=== PATIENT | male | born 1945 | race Two or more races ===

== ENCOUNTER 2020-05-10 08:22 | Inpatient (IN) | payer BC ==
[~2020-05-10] VITALS: Ht 188 cm; Wt 97.6 kg
[2020-05-10] MEDS ORDERED: InsuLIN REG 1unit/0.01ml Soln (100units/ml) IV ONE ×2 (09:00→11:00)
[2020-05-10] MEDS ORDERED: SODIUM CHLORIDE 0.9% 1,000 ML IV ONE (09:00)
[2020-05-10 09:11] LABS: Basophils # (auto) 0 10 ^3/uL (0-0.2); Basophils % (auto) 0.1 % (0.0-2.0); Eosinophils # (auto) 0.1 10 ^3/uL (0-0.8); Eosinophils % (auto) 0.5 % (0.0-7.0); Hematocrit 41.4 % (41.0-53.0); Hemoglobin 14.2 g/dL (13.5-17.5); Lymphocytes # (auto) 1.1 10 ^3/uL (0.4-5.4); Lymphocytes % (auto) 11.1 % (10.0-50.0); Mean Corpuscular Hemoglobin 31.2 pg (28.0-32.0); Mean Corpuscular Hgb Conc. 34.3 g/dL (32.0-36.0); Mean Corpuscular Volume 91.2 fL (80.0-100.0); Monocytes # (auto) 0.8 10 ^3/uL (0-1.3); Monocytes % (auto) 8.3 % (0.0-12.0); Neutrophils # (auto) 8.1 10 ^3/uL (1.6-8.6); Nucleated Red Blood Cells % 0.1 %; Platelet Count (auto) 147 10^3/uL (140-450); Red Blood Cells 4.54 10^6/uL (4.5-5.90); Red Cell Distribution Width 12.3 % (11.8-14.3); White Blood Cell 10.2 10^3/uL (4.4-10.8)
[2020-05-10 09:24] LABS: Albumin 3.8 g/dL (3.4-5.0); Anion Gap 16 (5-15); Blood Urea Nitrogen 60 mg/dL (7-18); Calcium 9.3 mg/dL (8.5-10.1); Carbon Dioxide 24 mmol/L (21-32); Chloride 86 mmol/L (98-107); Magnesium 2.5 mg/dL (1.6-2.6); Potassium 4.5 mmol/L (3.5-5.1); Sodium 126 mmol/L (136-145)
[2020-05-10 09:27] LABS: Alanine Aminotransferase 88 U/L (16-61); Aspartate Aminotransferase 23 U/L (15-37); Bilirubin, Total 0.7 mg/dL (0.2-1.0); GFR African American 32 mL/min; GFR Non-African American 27 mL/min; Total Protein 7.5 g/dL (6.4-8.2)
[2020-05-10 09:33] LABS: Alkaline Phosphatase 236 U/L (45-117)
[2020-05-10 09:40] LABS: BUN/Creatinine Ratio 23.7; Glucose 837 mg/dL (74-106)
[2020-05-10 10:29] LABS: Urine Bacteria NONE SEEN /hpf (None Seen); Urine Blood Negative /uL (Negative); Urine Specific Gravity 1.017 (1.001-1.035); Urine WBC <1 /hpf (0 - 3)
[2020-05-10] MEDS ORDERED: InsuLIN R (HUMAN) 100 UNITS in SODIUM CHL 0.9% 99 ML IV SCH ×2 (11:30→14:45)
[2020-05-10] MEDS ORDERED: INSULIN LANTUS (GLARGINE) 1 /0.01ml (100units/ml) SC ONE ×2 (11:30→14:45)
[2020-05-10] MEDS ORDERED: DEXTROSE (50%) 50ML SYRG IV PRN ×3 (11:30→19:45)
[2020-05-10] MEDS: ACCU-CHEK COMFORT CURVE STRIP VI SCH ×3 (12:00→22:45)
[2020-05-10 13:16] LABS: Albumin 3.2 g/dL (3.4-5.0); BUN/Creatinine Ratio 24.8; Calcium 8.3 mg/dL (8.5-10.1); Potassium 4.5 mmol/L (3.5-5.1); Total Protein 6.3 g/dL (6.4-8.2)
[2020-05-10 13:20] LABS: Bilirubin, Total 0.4 mg/dL (0.2-1.0)
[2020-05-10] MEDS: SODIUM CHLORIDE 0.9% 1,000 ML IV SCH ×2 (14:45→21:30)
[2020-05-10] MEDS ORDERED: DOCUSATE SOD 100 MG CAP PO PRN (14:45)
[2020-05-10] MEDS ORDERED: ONDANSETRON HCL 4 MG/2 ML VIAL IV PRN (14:45)
[2020-05-10] MEDS ORDERED: ACETAMINOPHEN 325 MG TAB PO PRN (14:45)
[2020-05-10] MEDS ORDERED: ACCU-CHEK COMFORT CURVE STRIP VI SCH (15:00)
[2020-05-10 20:25] VITALS: BP 127/73
[2020-05-10 21:00] VITALS: BP 127/73
[2020-05-10] MEDS: InsuLIN REG 1unit/0.01ml Soln (100units/ml) SC SCH (22:45)
[2020-05-11] MEDS ORDERED: PNEUMOCOCCAL VACC POLYS 25 MCG/0.5 ML VIAL IM ONE (02:45)
[2020-05-11 06:00] VITALS: BP 137/88
[2020-05-11 06:06] LABS: Basophils # (auto) 0 10 ^3/uL (0-0.2); Basophils % (auto) 0.2 % (0.0-2.0); Eosinophils # (auto) 0.1 10 ^3/uL (0-0.8); Hematocrit 37.6 % (41.0-53.0); Hemoglobin 12.8 g/dL (13.5-17.5); Lymphocytes # (auto) 0.7 10 ^3/uL (0.4-5.4); Lymphocytes % (auto) 12.2 % (10.0-50.0); Mean Corpuscular Hemoglobin 30.9 pg (28.0-32.0); Mean Corpuscular Hgb Conc. 34.2 g/dL (32.0-36.0); Mean Corpuscular Volume 90.4 fL (80.0-100.0); Monocytes # (auto) 0.5 10 ^3/uL (0-1.3); Monocytes % (auto) 8.6 % (0.0-12.0); Neutrophils # (auto) 4.6 10 ^3/uL (1.6-8.6); Nucleated Red Blood Cells % 0.1 %; Platelet Count (auto) 111 10^3/uL (140-450); Red Blood Cells 4.16 10^6/uL (4.5-5.90); Red Cell Distribution Width 12.4 % (11.8-14.3); White Blood Cell 5.9 10^3/uL (4.4-10.8)
[2020-05-11 06:29] LABS: Anion Gap 7 (5-15); Blood Urea Nitrogen 60 mg/dL (7-18); Calcium 8.5 mg/dL (8.5-10.1); Carbon Dioxide 26 mmol/L (21-32); Chloride 111 mmol/L (98-107); Cholesterol 142 mg/dL (< 200); Glucose 215 mg/dL (74-106); Potassium 3.9 mmol/L (3.5-5.1); Sodium 144 mmol/L (136-145)
[2020-05-11 06:32] LABS: GFR African American 31 mL/min; GFR Non-African American 26 mL/min; HDL Cholesterol 29 mg/dL (40-59); Triglycerides 606 mg/dL (< 150)
[2020-05-11] MEDS: ACCU-CHEK COMFORT CURVE STRIP VI SCH ×4 (06:47→21:48)
[2020-05-11] MEDS: InsuLIN REG 1unit/0.01ml Soln (100units/ml) SC SCH ×4 (06:47→22:27)
[2020-05-11] MEDS: SODIUM CHLORIDE 0.9% 1,000 ML IV SCH ×4 (06:55→20:45)
[2020-05-11 08:57] VITALS: BP 159/78
[2020-05-11] MEDS ORDERED: INSULIN LANTUS (GLARGINE) 1 /0.01ml (100units/ml) SC SCH (10:00)
[2020-05-11] MEDS: INSULIN LANTUS (GLARGINE) 1 /0.01ml (100units/ml) SC SCH (10:14)
[2020-05-11 13:00] VITALS: BP 141/74
[2020-05-11 16:31] VITALS: BP 150/75
[2020-05-11 21:00] VITALS: BP 141/72
[2020-05-12] MEDS: SODIUM CHLORIDE 0.9% 1,000 ML IV SCH ×5 (01:45→17:56)
[2020-05-12] MEDS: ACCU-CHEK COMFORT CURVE STRIP VI SCH ×4 (05:46→21:40)
[2020-05-12] MEDS: InsuLIN REG 1unit/0.01ml Soln (100units/ml) SC SCH ×4 (05:48→21:41)
[2020-05-12 06:00] VITALS: BP 164/81
[2020-05-12 07:53] LABS: Calcium 7.7 mg/dL (8.5-10.1); Magnesium 2.5 mg/dL (1.6-2.6); Potassium 3.7 mmol/L (3.5-5.1)
[2020-05-12 07:56] LABS: BUN/Creatinine Ratio 19.9
[2020-05-12 09:00] VITALS: BP 150/78
[2020-05-12 09:35] LABS: Basophils # (auto) 0 10 ^3/uL (0-0.2); Basophils % (auto) 0.3 % (0.0-2.0); Eosinophils # (auto) 0.2 10 ^3/uL (0-0.8); Eosinophils % (auto) 3.9 % (0.0-7.0); Hematocrit 37.5 % (41.0-53.0); Hemoglobin 12.7 g/dL (13.5-17.5); Lymphocytes # (auto) 1.1 10 ^3/uL (0.4-5.4); Lymphocytes % (auto) 19.5 % (10.0-50.0); Mean Corpuscular Hgb Conc. 33.7 g/dL (32.0-36.0); Monocytes # (auto) 0.6 10 ^3/uL (0-1.3); Monocytes % (auto) 10.2 % (0.0-12.0); Neutrophils # (auto) 3.7 10 ^3/uL (1.6-8.6); Neutrophils % (auto) 66.1 % (37.0-80.0); Nucleated Red Blood Cells % 0.1 %; Platelet Count (auto) 92 10^3/uL (140-450); Red Blood Cells 4.08 10^6/uL (4.5-5.90); Red Cell Distribution Width 12.6 % (11.8-14.3); White Blood Cell 5.5 10^3/uL (4.4-10.8)
[2020-05-12] MEDS: INSULIN LANTUS (GLARGINE) 1 /0.01ml (100units/ml) SC SCH (10:19)
[2020-05-12 13:00] VITALS: BP 158/99
[2020-05-12] MEDS ORDERED: LIDOCAINE 2% JELLY 11ml (GLYDO) UR ONE (14:00)
[2020-05-12] MEDS: TAMSULOSIN HYDROCHLORIDE 0.4 MG CAP PO SCH (18:16)
[2020-05-12 22:00] VITALS: BP 140/78
[2020-05-13] MEDS: SODIUM CHLORIDE 0.9% 1,000 ML IV SCH (02:45)
[2020-05-13 05:11] VITALS: BP 159/84
[2020-05-13] MEDS: ACCU-CHEK COMFORT CURVE STRIP VI SCH ×4 (06:34→22:10)
[2020-05-13] MEDS: InsuLIN REG 1unit/0.01ml Soln (100units/ml) SC SCH ×4 (06:35→22:21)
[2020-05-13 06:54] LABS: Basophils # (auto) 0 10 ^3/uL (0-0.2); Basophils % (auto) 0.1 % (0.0-2.0); Eosinophils # (auto) 0.2 10 ^3/uL (0-0.8); Eosinophils % (auto) 4.2 % (0.0-7.0); Hematocrit 39.1 % (41.0-53.0); Hemoglobin 13.5 g/dL (13.5-17.5); Lymphocytes # (auto) 0.9 10 ^3/uL (0.4-5.4); Mean Corpuscular Hemoglobin 31.3 pg (28.0-32.0); Mean Corpuscular Hgb Conc. 34.5 g/dL (32.0-36.0); Mean Corpuscular Volume 90.6 fL (80.0-100.0); Monocytes # (auto) 0.6 10 ^3/uL (0-1.3); Neutrophils # (auto) 3.4 10 ^3/uL (1.6-8.6); Neutrophils % (auto) 66.7 % (37.0-80.0); Nucleated Red Blood Cells % 0.2 %; Platelet Count (auto) 102 10^3/uL (140-450); Red Blood Cells 4.31 10^6/uL (4.5-5.90); Red Cell Distribution Width 12.4 % (11.8-14.3); White Blood Cell 5.2 10^3/uL (4.4-10.8)
[2020-05-13 07:03] LABS: INR 1.19 (0.9-1.15); Partial Thromboplastin Time 26.8 sec (23.0-31.2)
[2020-05-13 07:22] LABS: Potassium 3.4 mmol/L (3.5-5.1)
[2020-05-13 07:34] LABS: Albumin 2.9 g/dL (3.4-5.0); BUN/Creatinine Ratio 17.3; Bilirubin, Direct 0.2 mg/dL (0-0.2); Bilirubin, Total 0.6 mg/dL (0.2-1.0); Calcium 7.9 mg/dL (8.5-10.1); Total Protein 5.9 g/dL (6.4-8.2)
[2020-05-13 09:00] VITALS: BP 153/87
[2020-05-13] MEDS: INSULIN LANTUS (GLARGINE) 1 /0.01ml (100units/ml) SC SCH (10:05)
[2020-05-13 13:00] VITALS: BP 157/89
[2020-05-13] MEDS: POTASSIUM CHL 20MEQ/100ML 100 ML IV SCH ×2 (14:37→14:38)
[2020-05-13] MEDS: SOD CHL 0.45% 1,000 ML IV SCH ×2 (14:39→23:16)
[2020-05-13 16:23] VITALS: BP 156/80
[2020-05-13] MEDS: TAMSULOSIN HYDROCHLORIDE 0.4 MG CAP PO SCH (18:52)
[2020-05-13 22:00] VITALS: BP 152/79
[2020-05-14] MEDS: SOD CHL 0.45% 1,000 ML IV SCH ×3 (03:00→21:26)
[2020-05-14 05:00] VITALS: BP 146/76
[2020-05-14] MEDS: ACCU-CHEK COMFORT CURVE STRIP VI SCH ×4 (06:15→21:26)
[2020-05-14] MEDS: InsuLIN REG 1unit/0.01ml Soln (100units/ml) SC SCH ×4 (06:15→21:22)
[2020-05-14] MEDS ORDERED: POVIDONE IODINE 10 % TOPICAL OINT 30GM TOP ONE (07:04)
[2020-05-14] MEDS ORDERED: ceFAZolin 1GM/50ML 50 ML IV ONE (07:05)
[2020-05-14] MEDS ORDERED: SUCCINYLCHOLINE CHLORIDE 20 MG/ML 10ML VIAL IV ONE (07:09)
[2020-05-14] MEDS ORDERED: DexAMETHasone SOD PHOS 10MG/1ML VIAL INJ ONE (07:12)
[2020-05-14] MEDS ORDERED: fentaNYL CITRATE 100 MCG/2 ML VL ONE (07:12)
[2020-05-14] MEDS ORDERED: GLYCOPYRROLATE 0.2 MG/ML 1ML VIAL ONE (07:12)
[2020-05-14] MEDS ORDERED: ROCURONIUM 10MG/ML 10ML VIAL IV ONE (07:12)
[2020-05-14] MEDS ORDERED: PROPOFOL 10 MG/ML 20 ML IV ONE (07:12)
[2020-05-14] MEDS ORDERED: NEOSTIGMINE 1 MG/ML INJ (10mg/10ML VIAL) ONE (07:12)
[2020-05-14] MEDS ORDERED: MEPERIDINE HCL (25 MG/ML) 1ML VIAL ONE (07:12)
[2020-05-14] MEDS ORDERED: MIDAZOLAM HCL 1MG/1ML-2 ML VIAL ONE (07:12)
[2020-05-14] MEDS ORDERED: ONDANSETRON HCL 4 MG/2 ML VIAL ONE (07:12)
[2020-05-14] MEDS ORDERED: SODIUM CHLORIDE LOCK 10 ML ONE (07:12)
[2020-05-14 07:15] LABS: Basophils # (auto) 0 10 ^3/uL (0-0.2); Basophils % (auto) 0.1 % (0.0-2.0); Eosinophils # (auto) 0.1 10 ^3/uL (0-0.8); Eosinophils % (auto) 2.1 % (0.0-7.0); Hematocrit 38.8 % (41.0-53.0); Hemoglobin 13.3 g/dL (13.5-17.5); Lymphocytes # (auto) 0.4 10 ^3/uL (0.4-5.4); Lymphocytes % (auto) 7.8 % (10.0-50.0); Mean Corpuscular Hemoglobin 31.1 pg (28.0-32.0); Mean Corpuscular Hgb Conc. 34.3 g/dL (32.0-36.0); Mean Corpuscular Volume 90.5 fL (80.0-100.0); Monocytes # (auto) 0.7 10 ^3/uL (0-1.3); Monocytes % (auto) 13.3 % (0.0-12.0); Neutrophils # (auto) 3.8 10 ^3/uL (1.6-8.6); Neutrophils % (auto) 76.7 % (37.0-80.0); Nucleated Red Blood Cells % 0.1 %; Platelet Count (auto) 105 10^3/uL (140-450); Red Blood Cells 4.29 10^6/uL (4.5-5.90); Red Cell Distribution Width 12.5 % (11.8-14.3)
[2020-05-14] MEDS ORDERED: DOXAPRAM HCL 20 MG/ML 20ML VIAL INJ IV ONE (07:17)
[2020-05-14 07:24] LABS: Calcium 7.8 mg/dL (8.5-10.1); Potassium 3.1 mmol/L (3.5-5.1)
[2020-05-14 07:25] LABS: BUN/Creatinine Ratio 12.8
[2020-05-14] MEDS ORDERED: hydrALAZINE HCL 20 MG/ML VL ONE (08:27)
[2020-05-14] MEDS ORDERED: HYDROmorphone HCL 2 MG/ML VL IV PRN (08:45)
[2020-05-14] MEDS ORDERED: MORPHINE SULFATE 4 MG/ML SYR/VIAL IV PRN (08:45)
[2020-05-14] MEDS ORDERED: METOCLOPRAMIDE HCL 5MG/ml INJ 2ml VIAL IV PRN (08:45)
[2020-05-14] MEDS ORDERED: ACCU-CHEK COMFORT CURVE STRIP VI ONE (08:45)
[2020-05-14] MEDS: INSULIN LANTUS (GLARGINE) 1 /0.01ml (100units/ml) SC SCH (09:57)
[2020-05-14] MEDS ORDERED: POTASSIUM CHLORIDE 40 MEQ, LIDOCAINE 1% (LOCAL ANESTH.) 4 ML in SODIUM CHL 0.9% 250 ML IV ONE (10:45)
[2020-05-14 13:00] VITALS: BP 125/68
[2020-05-14 16:38] VITALS: BP 134/88
[2020-05-14] MEDS: TAMSULOSIN HYDROCHLORIDE 0.4 MG CAP PO SCH (17:52)
[2020-05-14 22:00] VITALS: BP 137/90
[2020-05-15] MEDS: SOD CHL 0.45% 1,000 ML IV SCH ×2 (02:47→11:00)
[2020-05-15 05:00] VITALS: BP 144/79
[2020-05-15 05:50] LABS: Basophils # (auto) 0 10 ^3/uL (0-0.2); Basophils % (auto) 0.2 % (0.0-2.0); Eosinophils # (auto) 0.1 10 ^3/uL (0-0.8); Eosinophils % (auto) 2.3 % (0.0-7.0); Hematocrit 35.1 % (41.0-53.0); Lymphocytes # (auto) 1.4 10 ^3/uL (0.4-5.4); Lymphocytes % (auto) 25.1 % (10.0-50.0); Mean Corpuscular Hemoglobin 30.9 pg (28.0-32.0); Mean Corpuscular Hgb Conc. 34.2 g/dL (32.0-36.0); Mean Corpuscular Volume 90.4 fL (80.0-100.0); Monocytes # (auto) 0.8 10 ^3/uL (0-1.3); Monocytes % (auto) 14.3 % (0.0-12.0); Neutrophils # (auto) 3.1 10 ^3/uL (1.6-8.6); Neutrophils % (auto) 58.1 % (37.0-80.0); Platelet Count (auto) 107 10^3/uL (140-450); Red Blood Cells 3.89 10^6/uL (4.5-5.90); Red Cell Distribution Width 12.5 % (11.8-14.3); White Blood Cell 5.4 10^3/uL (4.4-10.8)
[2020-05-15] MEDS: ACCU-CHEK COMFORT CURVE STRIP VI SCH ×2 (06:00→11:46)
[2020-05-15] MEDS: InsuLIN REG 1unit/0.01ml Soln (100units/ml) SC SCH ×2 (06:00→11:48)
[2020-05-15 08:00] VITALS: BP 135/80
[2020-05-15] MEDS: INSULIN LANTUS (GLARGINE) 1 /0.01ml (100units/ml) SC SCH (09:49)
[2020-05-15] MEDS ORDERED: INSREGI SC (11:11)
[2020-05-15] MEDS ORDERED: TAM04C PO (11:11)
[2020-05-15] MEDS ORDERED: BLOO-200 XX (11:11)
[2020-05-15] MEDS ORDERED: [UNRECOGNIZED DRUG - CODE] XX (11:11)
[2020-05-15] MEDS ORDERED: ACE325T PO (11:11)
[2020-05-15] MEDS ORDERED: INSLANTI SC (11:11)
[2020-05-15 12:17] VITALS: BP 135/80
[2020-05-15 13:00] VITALS: BP 150/75
== END 2020-05-15 14:50 | disposition home health service (06) | DRG 987 ==
LOC: ER 08:22 → TELE 08:23 → TELE-WESTW 20:25
PROVIDERS: ADMIT Hospitalist; ATTEND Internal Medicine
PROC: 0FT44ZZ Resection of Gallbladder, Percutaneous Endoscopic Approach (ICD-10-PCS; principal; 2020-05-14 07:17)
DX: R55 Syncope and collapse (principal); E11.10 Type 2 diabetes mellitus with ketoacidosis without coma; K80.00 Calculus of gallbladder with acute cholecystitis without obstruction; N17.9 Acute kidney failure, unspecified; N13.30 Unspecified hydronephrosis; I10 Essential (primary) hypertension; E78.5 Hyperlipidemia, unspecified; E66.01 Morbid (severe) obesity due to excess calories; N40.1 Benign prostatic hyperplasia with lower urinary tract symptoms; Z68.27 Body mass index [BMI] 27.0-27.9, adult; E78.00 Pure hypercholesterolemia, unspecified; F17.200 Nicotine dependence, unspecified, uncomplicated; I70.8 Atherosclerosis of other arteries; K57.30 Diverticulosis of large intestine without perforation or abscess without bleeding; K76.0 Fatty (change of) liver, not elsewhere classified; K66.0 Peritoneal adhesions (postprocedural) (postinfection); M25.78 Osteophyte, vertebrae; M48.02 Spinal stenosis, cervical region; N32.0 Bladder-neck obstruction; W18.39XA Other fall on same level, initial encounter; Y93.89 Activity, other specified; Y92.89 Other specified places as the place of occurrence of the external cause; Y99.8 Other external cause status
CPT/HCPCS: 36415; 36600; 70450; 70551; 71045; 72125; 74176; 74181; 76705; 76775; 78226; 80048; 80053; 80061; 80076; 81001; 82010; 82247; 82805; 82962; 83036; 83735; 83880; 84443; 84484; 85025; 85610; 85730; 86850; 86900; 86901; 96361; 96372; 96374; 96376; 97110; 97116; 97163; 97530; G0378; J0330; J0690; J1100; J1815; J2001; J2250; J2405; J2704; J3480